=== PATIENT | male | born 1990 ===

== ENCOUNTER 2017-12-13 22:49 | Inpatient (IN) | payer MEDICAID, OTHER ==
[2017-12-13 23:52] LABS: BASO # 0.1 K/uL (0.0-0.2); BASO % 0.9 % (0.0-2.0); EOS # 0.2 K/uL (0.0-0.7); EOS % 2.5 % (0.0-4.0); HEMOGLOBIN 13.8 g/dL (12.0-18.0); LYMPH # 3.1 K/uL (1.0-4.3); LYMPH % 37.1 % (20.0-40.0); MEAN CORPUSCULAR HEMOGLOBIN 31.7 pg (27.0-31.0); MEAN CORPUSCULAR HGB CONC 34.1 g/dL (33.0-37.0); MEAN PLATELET VOLUME 9.1 fL (7.2-11.7); MONO # 0.6 K/uL (0.0-0.8); MONO % 7.6 % (0.0-10.0); NEUT # 4.4 K/uL (1.8-7.0); NEUT % 51.9 % (50.0-75.0); RBC 4.35 Mil/uL (4.40-5.90); RED CELL DISTRIBUTION WIDTH 13.7 % (11.5-14.5); WHITE BLOOD COUNT 8.5 K/uL (4.8-10.8)
[2017-12-13 23:53] LABS: SQUAMOUS EPITHIAL < 1 /hpf (0-5); URINE BILIRUBIN NEGATIVE (NEGATIVE); URINE BLOOD NEGATIVE (NEGATIVE); URINE CLARITY Hazy (Clear); URINE COLOR Amber (YELLOW); URINE GLUCOSE (UA) NORMAL (Normal); URINE LEUKOCYTE ESTERASE NEG Leu/uL (Negative); URINE NITRATE NEGATIVE (NEGATIVE); URINE PROTEIN NEGATIVE (NEGATIVE)
[2017-12-14 00:05] LABS: ALB/GLOB RATIO 1.3 (1.0-2.1); ALBUMIN 4.3 g/dL (3.5-5.0); ALT/SGPT 59 U/L (21-72); AST/SGOT 38 U/L (17-59); BLOOD UREA NITROGEN 9 mg/dL (9-20); CALCIUM 9.9 mg/dl (8.6-10.4); GFR AFRICAN-AMERICAN > 60; GFR NON-AFRICAN AMERICAN > 60
[2017-12-14 00:07] LABS: BARBITURATES, UR NEGATIVE (NEGATIVE); BENZODIAZEPINES, UR NEGATIVE (NEGATIVE); PHENCYCLIDINE, UR NEGATIVE (NEGATIVE)
[2017-12-14 00:08] LABS: OPIATES, UR POSITIVE (NEGATIVE)
--- NOTE | 2017-12-14 00:43 | C.PDOC ---
History Of Present Illness 26 year old male presents to the ED requesting detox for IV heroin use. Patient states he uses 10-15 bags a day and his last use was today at 11:00. Patient denies fever, chills, SOB, CP. Chief Complaint (Nursing): Substance Abuse History Per: Patient History/Exam Limitations: no limitations Onset/Duration Of Symptoms: Hrs Current Symptoms Are (Timing): Still Present Suicide/Self Injury Attempted (Context): None Modifying Factor(s): Other (Heroin) Associated Symptoms: denies: Depression, Suicidal Thoughts, Suicidal Plan Recent travel outside of the [place]: No Additional History Per: Patient Past Medical History Reviewed: Historical Data, Nursing Documentation, Vital Signs Vital Signs: Last Vital Signs Temp 97.9 F 12/13/17 22:58 Pulse 67 12/13/17 22:58 Resp 20 12/13/17 22:58 BP 128/80 12/13/17 22:58 Pulse Ox 100 12/14/17 00:43 - Medical History PMH: No Chronic Diseases Surgical History: No Surg Hx Family History: States: Unknown Family Hx - Social History Hx Alcohol Use: Yes Hx Substance Use: Yes - Immunization History Hx Tetanus Toxoid Vaccination: No Hx Influenza Vaccination: No Hx Pneumococcal Vaccination: No Review Of Systems Constitutional: Negative for: Fever, Chills Cardiovascular: Negative for: Chest Pain, Palpitations Respiratory: Negative for: Cough, Shortness of Breath Gastrointestinal: Negative for: Nausea, Vomiting, Abdominal Pain Skin: Negative for: Rash Neurological: Negative for: Weakness, Numbness Physical Exam - Physical Exam Appears: Non-toxic, No Acute Distress Skin: Normal Color, Warm, Dry, Other (Tarck ann on left AC. no infection) Head: Atraumatic, Normacephalic Eye(s): bilateral: Normal Inspection Nose: No Discharge, No Deformity Oral Mucosa: Moist Neck: Normal ROM, Supple Chest: Symmetrical Cardiovascular: Rhythm Regular, No Murmur Respiratory: Normal Breath Sounds, No Rales, No Rhonchi, No Wheezing Gastrointestinal/Abdominal: Soft, No Tenderness, No Guarding, No Rebound Extremity: Normal ROM, No Tenderness Neurological/Psych: Oriented x3, Normal Speech, Normal Cognition Gait: Steady ED Course And Treatment - Laboratory Results Result Diagrams: 12/13/17 23:48 12/13/17 23:48 O2 Sat by Pulse Oximetry: 100 (On RA) Pulse Ox Interpretation: Normal Medical Decision Making Medical Decision Making: Impression : heroin detox Plan: * Labs * Ua * Crisis eval * Disposition - Disposition Disposition Time: 00:45 Condition: STABLE Forms: [facility] (Syriac) - Clinical Impression Clinical Impression: Drug dependence, Drug abuse - Scribe Statement The provider has reviewed the documentation as recorded by the Scribe Jose Perez All medical record entries made by the Scribe were at my direction and personally dictated by me. I have reviewed the chart and agree that the record accurately reflects my personal performance of the history, physical exam, medical decision making, and the department course for this patient. I have also personally directed, reviewed, and agree with the discharge instructions and disposition.
--- NOTE | 2017-12-14 03:24 | PCM.BM ---
<Idania Nava - Last Filed: 12/14/17 03:23> Treatment Plan Problems - Problems identified on initial assessmt Opiate Dependence Date Initiated: 12/14/17 Time Initiated: 03:23 Assessment reference: NA Status: Active Treatment assets and liabiliti Patient Assests: ADL independent, good support system Patient Liabilities: substance abuse - Milieu Protocol Maintain good personal hygiene: daily Encourage regular showers, daily Remind patient to perform daily oral care, daily Assist patient to perform ADL's Maintain personal safety: every shift Educate patient to report safety concerns to staff, every shift Monitor environment for contraband/sharps Medication safety: Monitor for expected outcome, potential side effects: every shift, Assess barriers to learning: every shift, Assess readiness for medication education: every shift <Memo Drake - Last Filed: 12/18/17 00:13> - Diagnosis (1) Opioid use disorder, severe, dependence Status: Acute Interventions: 12/18/17 00:13 * Assess 7x/week regarding severity of withdrawal * Educate regarding risks, benefits, side effects and alternatives of medications * Use Motivational Interviewing for abstinence * Use CBT for relapse prevention * Medication management for withdrawal symptoms * Encourage medication assisted treatment *
--- NOTE | 2017-12-14 23:10 | PCM.PSYCH ---
Initial Psychiatric Evaluation - Initial Psychiatric Evaluation Type of Admission: Voluntary Legal Status: Capacity Chief Complaint (in patient's own words): "I want to be free from drugs." History of Present Illness and Precipitating Events: Pt is a 26yr old male, who was admitted for heroin detox. He stated that he needs detox because he cannot stop using Heroin by himself. Pt said that he shoots 4 or 10 bags a day. Pt said that he wants to stop for the sake of his girlfriend and his two young children because [employer] is involved. Pt also reported that he has a birthday coming up and wants to get a fresh start. He said that he feels that he is wasting money on drugs when he could be spending the money on his family. Pt also reported that he did do detox in the past at [facility], but dropped out of rehab part after his friend . Pt reported that his last use of heroin was before coming to the hospital. He injected 4 bags. He started at the age of 25. He reported heroin withdrawal symptoms including yawning, stomach and muscle cramps, nasuea, hot and cold flashes. CAGE questionnaire was positive. He reported that he drinks Etoh started at the age of 13, last use was 4 days ago, 1x a week, Marijuana use was denied Cocaine: started at the age of 18, sniffs bag, last use was couple of days ago Nicotine 1 to 1 ppd Nelly 30 mg tab in the past 1-2 tabs daily Pt denied mood symptoms including depression, anxiety, manic and perceptual disturbances. Social History; He is single, he has 2 boys ages 6 and 3years old. He lives with his children and children's mother. He is employed, [employer] is involved from [facility]. Pt. 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 Current Medications: Active Medications Generic Name Dose Route Start Last Admin Trade Name Freq PRN Reason Stop Dose Admin Clonidine HCl 0.1 mg 12/14/17 02:43 Catapres PO Q8 PRN Withdrawal Symptoms COW >5 Dicyclomine HCl 10 mg 12/14/17 04:06 Bentyl PO QID PRN cramps Hydroxyzine HCl 25 mg 12/14/17 02:41 Atarax PO Q6 PRN Anxiety Ibuprofen 600 mg 12/14/17 04:07 Motrin Tab PO TID PRN Pain, moderate (4-7) Loperamide HCl 2 mg 12/14/17 04:05 Imodium PO Q8 PRN Diarrhea Ondansetron HCl 4 mg 12/14/17 04:05 Zofran Tab PO Q8 PRN Nausea/Vomiting Past Psychiatric History - Past Psychiatric History Previous Treatment History: None History of Abuse: denied History of ETOH/Drug Use: please see HPI History of Family Illness: denied Pertinent Medical Hx (Current Medical&Sleep Prob, Allergies): Allergies Allergy/AdvReac Type Severity Reaction Status Date / Time bee venom protein (honey bee) Allergy Verified 12/13/17 23:01 No Known Home Med 12/13/17 Review of Systems - Review of Systems All systems: reviewed and no additional remarkable complaints except (HPI) - Constitutional Constitutional: UN - EENT Eyes: UNREMARKABLE Ears: UNREMARKABLE Nose/Mouth/Throat: UNREMARKABLE - Cardiovascular Cardiovascular: UNREMARKABLE - Respiratory Respiratory: UNREMARKABLE - Gastrointestinal Gastrointestinal: UNREMARKABLE - Integumentary Integumentary: UNREMARKABLE - Neurological Neurological: UNREMARKABLE - Psychiatric Psychiatric: As Per HPI Mental Status Examination - Personal Presentation Personal Presentation: Looks younger than stated age, Dressed appropriate to season - Affect Affect: Constricted - Motor Activity Motor Activity: Calm - Reliability in Providing Information Reliability in Providing Information: Good - Speech Speech: Organized - Mood Mood: Anxious - Formal Thought Process Formal Thought Process: No Impairment - Hallucinations/Delusions Delusions: Other - Obsessions/Compulsions Obsessions: None Compulsions: None - Cognitive Functions Orientation: Person, Place, Situation, Time Sensorium: Alert Attention/Concentration: Attentive Abstract Thinking: [place] Estimate of Intelligence: Average Judgement: Intact, as evidence by: Good judgement, Intact, as evidence by: Insight regarding need for hospitalization Memory: Recent intact, as evidence by: Ability to recall events of the day - Risk Risk: Other (denied) - Strength & Assets Inventory Strength & Assets Inventory: Family support, Education, Employment status - Limitations Limitations: Other (chronic illicit drugs use) DSM 5 DX - DSM 5 DSM 5 Diagnosis: Opioid use disorder, severe, dependence, withdrawal - Recommended/Plan of Treatment Treatment Recommendations and Plan of Treatment: Subutex taper once pt start scoring Gabapentin for augmentation As needed meds and vitamins Attend groups and activities MN for abstinence and CBT for relapse prevention Support and psychoeducation Consider and encourage MAT Refer to after care 33 min Projected ELOS: 5 days Prognosis: good Discharge Plan and Discharge Criteria: refer to after care plan - Smoking Cessation Smoking Cessation Initiated: Yes
[2017-12-15] MEDS ORDERED: Buprenorphine Hydrochloride 2 mg SL ONE ×2 (08:37→09:34)
--- NOTE | 2017-12-15 18:40 | PCM.PYCHPN ---
Psychiatric Progress Note - Psychiatric Progress Note Patient seen today, length of contact: 15 minutes Patient Chief Complaint: "I'm feeling better after subutex." Problems Identified/Issues Discussed: The pt is seen, chart reviewed, case discussed with staff. The pt is reported improvement in his opioid withdrawal symptoms after receiving Subutex. Pt is compliant with medications and reports no side-effects. Symptoms are improving but needs more time to stabilize. After care discussed, support and psychoeducation given. Diagnostic Results: Opioid use disorder, severe, dependence Medication Change: Yes (Subutex taper) Medical Record Reviewed: Yes Mental Status Examination - Cognitive Function Orientation: Person, Place, Situation, Time Memory: Intact Attention: WNL Concentration: WNL Association: [facility] Fund of Knowledge: [facility] Decription of patient's judgement and insights: good/good Calm and cooperative - Mood Mood: Anxious - Affect Affect: Constricted - Speech Speech: Appropriate - Formal Thought Process Formal Thought Process: No Impairment Psychotic Thoughts and Behaviors: denied - Suicidal Ideation Suicidal Ideation: No Plan: denied - Homicidal Ideation Homicidal Ideation: No Plan: denied Goal/Treatment Plan - Goal/Treatment Plan Need for Continued Stay: Discharge may exacerbated symptoms Progress Toward Problem(s) and Goals/Treatment Plan: Subutex taper daily for opioid detox Gabapentin for augmentation As needed meds and vitamins Attend groups and activities MN for abstinence and CBT for relapse prevention Support and psychoeducation Estimated Date of D/C: 12/18/17 - Smoking Cessation Smoking Cessation Initiated: Yes
[2017-12-16] MEDS ORDERED: Buprenorphine Hydrochloride 2 mg SL ONE (10:30)
[2017-12-16] MEDS ORDERED: Buprenorphine Hydrochloride 2 mg SL SCH (10:30)
--- NOTE | 2017-12-16 10:55 | PCM.PYCHPN ---
Psychiatric Progress Note - Psychiatric Progress Note Patient seen today, length of contact: 15 minutes Patient Chief Complaint: I am feeling little better.' Problems Identified/Issues Discussed: Patient seen and evaluated, chart reviewed and discussed with the nurse. He reports improvement in his mood and denies any feelings of hopelessness and helplessness. Patient still reports withdrawal symptoms including cramps and sweating. He denies any SI/HI/AVH. He is taking medication and denies any side effects. He needs more time for stabilization. Supportive therapy and psychoeducation were given. Medication Change: Yes (Subutex taper) Medical Record Reviewed: Yes Mental Status Examination - Cognitive Function Orientation: Person, Place, Situation, Time Memory: Intact Attention: WNL Concentration: WNL Association: WNL Fund of Knowledge: WNL - Mood Mood: Anxious - Affect Affect: Constricted - Speech Speech: Appropriate - Formal Thought Process Formal Thought Process: No Impairment - Suicidal Ideation Suicidal Ideation: No - Homicidal Ideation Homicidal Ideation: No Goal/Treatment Plan - Goal/Treatment Plan Need for Continued Stay: Discharge may exacerbated symptoms Progress Toward Problem(s) and Goals/Treatment Plan: Subutex taper daily for opioid detox Gabapentin for augmentation As needed meds and vitamins Attend groups and activities MT for abstinence and CBT for relapse prevention Support and psychoeducation Estimated Date of D/C: 12/18/17 - Smoking Cessation Smoking Cessation Initiated: No
[2017-12-16 20:30] VITALS: RESP 18
[2017-12-17] MEDS ORDERED: Buprenorphine Hydrochloride 2 mg SL ONE (09:00)
--- NOTE | 2017-12-17 14:29 | PCM.PYCHPN ---
Psychiatric Progress Note - Psychiatric Progress Note Patient seen today, length of contact: 15 minutes Patient Chief Complaint: "I have no complaints." Problems Identified/Issues Discussed: The pt is seen, chart reviewed, case discussed with staff. The pt is compliant with medications and reports no side-effects. Symptoms are improving but needs more time to stabilize. After care discussed, support and psychoeducation given. Patient appears comfortable and states he has no complaints. He has anxiety but no other signs of withdrawal or discomfort. Medication Change: Yes (Subutex taper) Medical Record Reviewed: Yes Mental Status Examination - Cognitive Function Orientation: Person, Place, Situation, Time Memory: Intact Attention: WNL Concentration: WNL Association: WNL Fund of Knowledge: WNL - Mood Mood: Anxious - Affect Affect: Constricted, Blunted - Speech Speech: Appropriate - Formal Thought Process Formal Thought Process: No Impairment - Suicidal Ideation Suicidal Ideation: No - Homicidal Ideation Homicidal Ideation: No Goal/Treatment Plan - Goal/Treatment Plan Need for Continued Stay: Discharge may exacerbated symptoms Progress Toward Problem(s) and Goals/Treatment Plan: Continue medications Support and psychoeducation daily Attend groups and activities daily After care planning by CHELLY zaragoza lives in [facility] and plans to arrange an IOP (trying [facility]) and vivitrol shot (has an appointment with [facility] for December 25). Estimated Date of D/C: 12/18/17
--- NOTE | 2017-12-18 08:42 | PCM.PYCHDC ---
Mental Status Examination - Mental Status Examination Orientation: Person, Place, Situation, Time Mood: Anxious Affect: Constricted Speech: Appropriate Attention: WNL Concentration: WNL Suicidal Ideation: No Current Homicidal Ideation?: No Discharge Summary - Discharge Note Reason for Hospitalization: Heroin detox Consultations:: List each consultation separately and include: 1. Reason for request. 2. Findings. 3. Follow-up Summary of Hospital Course include:: 1. Description of specific treatment plan utilized for patients during their course of treatmen. 2. Summarize the time- course for resolution of acute symptoms and/or regressed behaviors. 3. Describe issues identified and worked on during hospitalization. 4. Describe medication utilized. 5. Describe medical problems identified and treated. 6. Reassessment of suicide risk Summary of Hospital Course: On admission: Pt is a 26yr old male, who was admitted for heroin detox. He stated that he needs detox because he cannot stop using Heroin by himself. Pt said that he shoots 4 or 10 bags a day. Pt said that he wants to stop for the sake of his girlfriend and his two young children because [employer] is involved. Pt also reported that he has a birthday coming up and wants to get a fresh start. He said that he feels that he is wasting money on drugs when he could be spending the money on his family. Pt also reported that he did do detox in the past at [facility], but dropped out of rehab part after his friend . Pt reported that his last use of heroin was before coming to the hospital. He injected 4 bags. He started at the age of 25. He reported heroin withdrawal symptoms including yawning, stomach and muscle cramps, nasuea, hot and cold flashes. CAGE questionnaire was positive. He reported that he drinks Etoh started at the age of 13, last use was 4 days ago, 1x a week, Marijuana use was denied Cocaine: started at the age of 18, sniffs bag, last use was couple of days ago Nicotine 1 to 1 ppd Nelly 30 mg tab in the past 1-2 tabs daily Pt denied mood symptoms including depression, anxiety, manic and perceptual disturbances. Social History; He is single, he has 2 boys ages 6 and 3years old. He lives with his children and children's mother. He is employed, [employer] is involved from [facility]. Pt. 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 Hospital course: The pt was admitted and started on treatment with psychotherapy , support, psychoeducation and medications. AK and CBT used. The pt attended groups and activities, as well as milieu therapy. All the risks and benefits of medications are discussed and the patient understood and agreed. The pt improved with the treatments provided. After care discussed with the patient- will be going to IOP and getting vivitrol. Patient was cooperative. - Diagnosis (1) Opioid use disorder, severe, dependence Current Visit: Yes Status: Acute - Final Diagnosis (DSM 5) Condition upon Discharge: IMPROVED DSM 5: Opioid use disorder, severe Disposition: HOME/ ROUTINE Follow-up Treatment Plan: Continue below medications after discharge. Follow after care plan as discussed. Use relapse prevention skills Return to ER or call 911 if suicidal, homicidal or symptoms relapse. Stay away from stress, alcohol and drugs. See primary doctor regularly and get labs. After care planning by DUANE- he lives in [facility] and plans to arrange an IOP (trying [facility]) and vivitrol shot (has an appointment with [facility] for December 25). Prescriptions/Medication Reconciliation: hydrOXYzine HCl [Atarax] 25 mg PO BID PRN #60 tab PRN Reason: Anxiety traZODone [Desyrel] 50 mg PO HS PRN #30 tab PRN Reason: insomnia
[2017-12-18] MEDS ORDERED: Buprenorphine Hydrochloride 2 mg SL ONE (11:15)
[2017-12-18 11:29] VITALS: BP 112/65; PULSE 60; TEMP 97.9; O2SAT 100
== END 2017-12-18 13:37 | disposition home or self-care (01) | DRG 745 ==
LOC: C.ER 22:49 → C.7D 12-14 00:48
PROVIDERS: ADMIT Psychiatry & Neurology Psychiatry; ATTEND Psychiatry & Neurology Psychiatry
PROC: HZ2ZZZZ Detoxification Services for Substance Abuse Treatment (ICD-10-PCS; principal; 2017-12-14)
PROC: HZ59ZZZ Individual Psychotherapy for Substance Abuse Treatment, Supportive (ICD-10-PCS; 2017-12-14)
PROC: HZ46ZZZ Group Counseling for Substance Abuse Treatment, Psychoeducation (ICD-10-PCS; 2017-12-14)
DX: F11.23 Opioid dependence with withdrawal (principal); F17.210 Nicotine dependence, cigarettes, uncomplicated; F41.9 Anxiety disorder, unspecified

== ENCOUNTER 2018-06-07 08:38 | Inpatient (IN) | payer MEDICAID, OTHER ==
[2018-06-07 09:31] LABS: BASO # 0.1 K/uL (0.0-0.2); BASO % 0.7 % (0.0-2.0); EOS # 0.3 K/uL (0.0-0.7); EOS % 2.8 % (0.0-4.0); HEMOGLOBIN 13.8 g/dL (12.0-18.0); LYMPH % 20.7 % (20.0-40.0); MEAN CELL VOLUME 92.9 fL (80.0-94.0); MEAN CORPUSCULAR HGB CONC 34.4 g/dL (33.0-37.0); MEAN PLATELET VOLUME 8.1 fL (7.2-11.7); MONO # 0.9 K/uL (0.0-0.8); NEUT # 6.6 K/uL (1.8-7.0); NEUT % 66.8 % (50.0-75.0); RBC 4.31 Mil/uL (4.40-5.90); RED CELL DISTRIBUTION WIDTH 13.2 % (11.5-14.5); WHITE BLOOD COUNT 9.8 K/uL (4.8-10.8)
[2018-06-07 09:44] LABS: URINE BILIRUBIN NEGATIVE (NEGATIVE); URINE BLOOD NEGATIVE (NEGATIVE); URINE CLARITY Clear (Clear); URINE COLOR Yellow (YELLOW); URINE GLUCOSE (UA) NORMAL (Normal); URINE LEUKOCYTE ESTERASE NEG Leu/uL (Negative); URINE PROTEIN NEGATIVE (NEGATIVE); URINE UROBILINOGEN NORMAL mg/dL (0.2-1.0)
[2018-06-07 09:47] LABS: ALB/GLOB RATIO 1.4 (1.0-2.1); ALBUMIN 4.2 g/dL (3.5-5.0); ALT/SGPT 105 U/L (21-72); AST/SGOT 48 U/L (17-59); BLOOD UREA NITROGEN 12 mg/dL (9-20); CALCIUM 9.6 mg/dl (8.6-10.4); GFR AFRICAN-AMERICAN > 60; GFR NON-AFRICAN AMERICAN > 60
[2018-06-07 09:53] LABS: BARBITURATES, UR NEGATIVE (NEGATIVE); BENZODIAZEPINES, UR NEGATIVE (NEGATIVE); PHENCYCLIDINE, UR NEGATIVE (NEGATIVE)
[2018-06-07 09:54] LABS: OPIATES, UR POSITIVE (NEGATIVE)
--- NOTE | 2018-06-07 10:12 | C.PDOC ---
History Of Present Illness 27 y/o male, history of IV drug abuse, presents to ED requesting detox from heroin. He reports using 10-20 bags of heroin daily. Last use was yesterday this morning. Pt states he suffers from withdrawal symptoms including abdominal cramping, nausea, sweating, tremors, and restless legs. Denies any symptoms at this time. Denies any past medical history. He reports occasional drinking. Time Seen by Provider: 06/07/18 09:06 Chief Complaint (Nursing): Substance Abuse History Per: Patient History/Exam Limitations: no limitations Suicide/Self Injury Attempted (Context): None Associated Symptoms: denies: Suicidal Thoughts, Suicidal Plan Involuntary Hold By: None Recent travel outside of the [place]: No Additional History Per: Patient Past Medical History Reviewed: Historical Data, Nursing Documentation, Vital Signs Vital Signs: Last Vital Signs Temp 98.4 F 06/07/18 08:44 Pulse 72 06/07/18 08:44 Resp 20 06/07/18 08:44 BP 132/75 06/07/18 08:44 Pulse Ox 100 06/07/18 10:14 - Medical History PMH: Denies: Diabetes, Hepatitis, HIV, HTN, Seizures, Sexually Transmitted Disease - [facility] DETOXIFICATION SERVICES FOR SUBSTANCE ABUSE TREATMENT (12/14/17) GROUP TUBE DRAWER FOR SUBSTANCE ABUSE TREATMENT, PSYCHOEDUCATION (12/14/17) INDIV PSYCHOTHERAPY FOR SUBSTANCE ABUSE TREATMENT, SUPPORT (12/14/17) Family History: States: Unknown Family Hx - Social History Hx Alcohol Use: No Hx Substance Use: Yes - Immunization History Hx Tetanus Toxoid Vaccination: No Hx Influenza Vaccination: No Hx Pneumococcal Vaccination: No Review Of Systems Except As Marked, All Systems Reviewed And Found Negative. Constitutional: Negative for: Fever, Chills Cardiovascular: Negative for: Chest Pain, Palpitations Respiratory: Negative for: Cough, Shortness of Breath Gastrointestinal: Negative for: Nausea, Vomiting, Abdominal Pain Physical Exam - Physical Exam Appears: Non-toxic, No Acute Distress Skin: Normal Color, Warm, Dry Head: Atraumatic, Normacephalic Eye(s): bilateral: Normal Inspection Oral Mucosa: Moist Neck: Normal ROM, Supple Cardiovascular: Rhythm Regular Respiratory: Normal Breath Sounds, No Rales, No Rhonchi, No Wheezing Gastrointestinal/Abdominal: Soft, No Tenderness Extremity: Normal ROM Neurological/Psych: Oriented x3, Normal Speech ED Course And Treatment - Laboratory Results Result Diagrams: 06/07/18 09:25 08 09:25 O2 Sat by Pulse Oximetry: 100 (RA) Pulse Ox Interpretation: Normal Medical Decision Making Medical Decision Making: Plan: Blood work Urinalysis Crisis evaluation Disposition Counseled Patient/Family Regarding: Studies Performed, Diagnosis - Disposition Disposition: HOSPITALIZED Disposition Time: 10:12 Forms: [employer] (Frisian) - Clinical Impression Clinical Impression: Drug dependence, Opioid use disorder, severe, dependence - Scribe Statement The provider has reviewed the documentation as recorded by the Scribe KP All medical record entries made by the Scribe were at my direction and personally dictated by me. I have reviewed the chart and agree that the record accurately reflects my personal performance of the history, physical exam, medical decision making, and the department course for this patient. I have also personally directed, reviewed, and agree with the discharge instructions and disposition. Decision To Admit - Pt Status Changed To: Hospital Disposition Of: Inpatient - Admit Certification Admit to Inpatient:: After my assessment, the patient will require hospitalization for at least two midnights. This is because of the severity of symptoms shown, intensity of services needed, and/or the medical risk in this patient being treated as an outpatient. - InPatient: Physician Admission Certification: I certify that this patient requires 2 or more midnights of care for the following reason:: needs inpatient detox, - . Bed Request Type: Detox Patient Diagnosis: Drug dependence, Opioid use disorder, severe, dependence
--- NOTE | 2018-06-07 11:45 | PCM.BM ---
Treatment Plan Problems - Problems identified on initial assessmt potential for opiate withdrawal Date Initiated: 06/07/18 Time Initiated: 11:43 Assessment reference: NA Status: Active anxiety Date Initiated: 06/07/18 Time Initiated: 11:44 Assessment reference: NA Status: Active Treatment assets and liabiliti Patient Assests: cooperative, insightful, motivated, self-reliant, ADL independent, physically healthy, good support system, negotiates basic needs, cognitively intact, good interpersonal skills Patient Liabilities: substance abuse - Milieu Protocol Maintain good personal hygiene: daily Encourage regular showers, daily Remind patient to perform daily oral care, daily Assist patient to perform ADL's Maintain personal safety: every shift Educate patient to report safety concerns to staff, every shift Monitor environment for contraband/sharps Medication safety: Monitor for expected outcome, potential side effects: every shift, Assess barriers to learning: every shift, Assess readiness for medication education: every shift
[2018-06-07] MEDS ORDERED: Aluminum Hydroxide/Magnesium Hydroxide Susp (30 mL) PO PRN (12:57)
--- NOTE | 2018-06-07 21:30 | PCM.PSYCH ---
Initial Psychiatric Evaluation - Initial Psychiatric Evaluation Type of Admission: Voluntary Legal Status: Capacity Chief Complaint (in patient's own words): I need help to stop using drugs. History of Present Illness and Precipitating Events: Patient is a 27 years old, single, unemployed, male with no previous psychiatric history was admitted due to withdrawing from heroin. Heroin: He started using heroin about 2 years ago. Prior to that he was using Roxies for about 4 years on daily basis. He was using 8-10 tablets daily. Currently he was using 10-20 bags of heroin daily, IV. Last used yesterday night. His longest period of abstinence was one year about 3 years ago. He has history of one previous detox. He went to or rehabs at [facility] about 5 years ago but left after about one week without completion. He smokes one and a half pack of cigarettes daily. Denied use of any other drugs including alcohol, cannabis, cocaine. He was arrested as a juvenile for assaulting a police investigator. Currently [employer] is on his case. He was born in [place], has ninth grade of education. He is working. Never and has 2 children, 4 and 7 years old who lives with patient and his girlfriend. His height is 5 feet 7 inches and weight is 150 pounds. He wants to go to [facility] for follow-up care after discharge from the hospital. He is also interested in Vivitral injection. Current Medications: Active Medications Generic Name Dose Route Start Last Admin Trade Name Freq PRN Reason Stop Dose Admin Al Hydrox/Mg Hydrox/Simethicone 30 ml 06/07/18 12:57 Maalox 30 Ml PO TID PRN Indigestion / Heartburn Clonidine HCl 0.1 mg 06/07/18 12:57 Catapres PO Q8 PRN COWS Score More or Equal to 5 Dicyclomine HCl 20 mg 06/07/18 12:58 Bentyl PO Q6 PRN Abdominal Cramps Gabapentin 300 mg 06/07/18 14:00 06/07/18 17:48 Neurontin PO 300 mg TID SNEHAL Administration Ibuprofen 400 mg 06/07/18 12:59 Motrin Tab PO Q6 PRN Pain, moderate (4-7) Loperamide HCl 2 mg 06/07/18 12:57 Imodium PO Q8 PRN Diarrhea Nicotine 1 patch 06/07/18 13:00 06/07/18 13:13 Nicoderm Cq TD 1 patch DAILY SNEHAL Administration Ondansetron HCl 4 mg 06/07/18 12:57 Zofran Tab PO Q8 PRN Nausea/Vomiting Pneumococcal Polyvalent Vaccine 0.5 ml 06/10/18 10:00 Pneumovax 23 Vaccine IM 06/10/18 10:01 .ONCE ONE Trazodone HCl 50 mg 06/07/18 22:00 Desyrel PO HS SNEHAL Past Psychiatric History - Past Psychiatric History Previous Treatment History: Inpatient Prior Professional Help: One previous detox At [facility]: [facility] History of Abuse: None reported History of ETOH/Drug Use: See HPI History of Family Illness: None reported Pertinent Medical Hx (Current Medical&Sleep Prob, Allergies): Allergies Allergy/AdvReac Type Severity Reaction Status Date / Time bee venom protein (honey bee) Allergy Verified 06/07/18 08:46 No Known Home Med 06/07/18 Review of Systems - Psychiatric Psychiatric: As Per HPI Mental Status Examination - Personal Presentation Personal Presentation: Looks stated age - Affect Affect: Depressed - Motor Activity Motor Activity: Calm - Reliability in Providing Information Reliability in Providing Information: Fair - Speech Speech: Organized - Mood Mood: Depressed - Formal Thought Process Formal Thought Process: No Impairment - Hallucinations/Delusions Hallucinations: Other (None reported) Delusions: Other - Obsessions/Compulsions Obsessions: None Compulsions: None - Cognitive Functions Orientation: Person, Place, Situation, Time Sensorium: Alert Attention/Concentration: Attentive Abstract Thinking: [place] Estimate of Intelligence: Average Judgement: Intact, as evidence by: Insight regarding need for hospitalization Memory: Recent intact, as evidence by: Ability to recall events of the day, Remote intact, as evidenced by: Ability to recall historical events - Risk Risk: Withdrawal, Diminished functioning - Strength & Assets Inventory Strength & Assets Inventory: Family support, Cooperative - Limitations Limitations: Other DSM 5 DX - DSM 5 DSM 5 Diagnosis: Opiate use disorder severe Opiate withdrawal - Recommended/Plan of Treatment Treatment Recommendations and Plan of Treatment: Patient education. Supportive therapy. CBT for relapse prevention. [place] for abstinence. We'll start methadone taper for opiate withdrawal symptoms. We'll start other when necessary medications. Projected ELOS: 4-5 days - Smoking Cessation Smoking Cessation Initiated: Yes
[2018-06-07] MEDS ORDERED: Buprenorphine Hydrochloride 2 mg SL ONE (23:45)
[2018-06-08] MEDS ORDERED: Buprenorphine Hydrochloride 2 mg SL ONE ×2 (00:50→15:48)
[2018-06-08 16:46] VITALS: RESP 18
--- NOTE | 2018-06-08 17:29 | PCM.PYCHPN ---
Psychiatric Progress Note - Psychiatric Progress Note Patient seen today, length of contact: 15 minutes Patient Chief Complaint: I'm feeling little better but still I have sleeping problems. Problems Identified/Issues Discussed: Patient seen, chart reviewed, case discussed with the staff. Issues related to illness and treatment were discussed with the patient and staff. Reported compliant with treatment with no adverse affects. Tolerating treatment very well. Calm and cooperative. Mood reported as anxious. Affect appropriate. Reported feeling little better, has a lot of withdrawal symptoms. Also still has some sleeping problems. Aftercare discussed with the patient. Patient was awake, alert and oriented 3. Denied any delusions, auditory or visual hallucinations, suicidal ideations or homicidal ideations at the time of evaluation. Medical Problems: None reported Diagnostic Results: Reviewed DSM 5 Symptoms Update: Some improvement with treatment Medication Change: No Medical Record Reviewed: Yes Mental Status Examination - Cognitive Function Orientation: Person, Place, Situation, Time Memory: Intact Attention: WNL Concentration: WNL Association: WN Fund of Knowledge: [facility] Decription of patient's judgement and insights: Fair - Mood Mood: Anxious - Affect Affect: Other (Appropriate) - Speech Speech: Appropriate - Formal Thought Process Formal Thought Process: No Impairment Psychotic Thoughts and Behaviors: None - Suicidal Ideation Suicidal Ideation: No - Homicidal Ideation Homicidal Ideation: No Goal/Treatment Plan - Goal/Treatment Plan Need for Continued Stay: Remain at risks for inpatient hospitalization, Discharge may exacerbated symptoms, Severe functional impairment Progress Toward Problem(s) and Goals/Treatment Plan: Patient education. Supportive therapy. CBT for relapse prevention. [place] for abstinence. Patient wants to go to [facility] for follow-up care for discharge from the hospital. Estimated Date of D/C: 06/11/18 - Smoking Cessation Smoking Cessation Initiated: Yes
[2018-06-09] MEDS: Buprenorphine Hydrochloride 2 mg SL SCH (09:27)
--- NOTE | 2018-06-09 15:35 | PCM.PYCHPN ---
Psychiatric Progress Note - Psychiatric Progress Note Patient seen today, length of contact: 15 minutes Medication Change: Yes (detox changes daily) Medical Record Reviewed: Yes Mental Status Examination - Cognitive Function Orientation: Person, Place, Situation, Time Memory: Intact Attention: WNL Concentration: WNL Association: WNL Fund of Knowledge: WNL - Mood Mood: Anxious - Affect Affect: Other (Appropriate) - Speech Speech: Appropriate - Formal Thought Process Formal Thought Process: No Impairment - Suicidal Ideation Suicidal Ideation: No - Homicidal Ideation Homicidal Ideation: No Goal/Treatment Plan - Goal/Treatment Plan Need for Continued Stay: Remain at risks for inpatient hospitalization, Discharge may exacerbated symptoms, Severe functional impairment Estimated Date of D/C: 06/11/18
--- NOTE | 2018-06-10 08:50 | PCM.PYCHDC ---
Mental Status Examination - Mental Status Examination Orientation: Person Discharge Summary - Discharge Note Consultations:: List each consultation separately and include: 1. Reason for request. 2. Findings. 3. Follow-up Summary of Hospital Course include:: 1. Description of specific treatment plan utilized for patients during their course of treatmen. 2. Summarize the time- course for resolution of acute symptoms and/or regressed behaviors. 3. Describe issues identified and worked on during hospitalization. 4. Describe medication utilized. 5. Describe medical problems identified and treated. 6. Reassessment of suicide risk Summary of Hospital Course: He will go to [facility] in [place]. - Final Diagnosis (DSM 5) Condition upon Discharge: GUARDED Disposition: HOME/ ROUTINE Prescriptions/Medication Reconciliation: Gabapentin [Neurontin] 300 mg PO TID #90 cap traZODone [Desyrel] 100 mg PO HS #30 tab
[2018-06-10] MEDS: Buprenorphine Hydrochloride 2 mg SL SCH (09:14)
[2018-06-10] MEDS ORDERED: Pneumococcal 23-Valent Vaccine IM ONE (10:00)
[2018-06-10 10:16] VITALS: BP 125/80; PULSE 72; TEMP 98.3; O2SAT 100
== END 2018-06-10 11:00 | disposition home or self-care (01) | DRG 745 ==
LOC: C.ER 08:38 → C.7D 10:13
PROC: HZ2ZZZZ Detoxification Services for Substance Abuse Treatment (ICD-10-PCS; principal; 2018-06-07)
DX: F11.23 Opioid dependence with withdrawal (principal); F17.200 Nicotine dependence, unspecified, uncomplicated; G25.81 Restless legs syndrome